=== PATIENT | male | born 1965 | race Caucasian/White ===

== ENCOUNTER → 2017-06-09 | Outpatient (CLI) | payer BC ==
[~2017-06-09] VITALS: Ht 175.3 cm; Wt 68.0 kg
[~2017-06-09] MED LIST: ALKA-SELTZER P1 EAC6 PO
== END | disposition home or self-care (01) ==
LOC: AMB 06:52
PROC: 0DBK8ZX Excision of Ascending Colon, Via Natural or Artificial Opening Endoscopic, Diagnostic (ICD-10-PCS; principal; 2017-06-09)
DX: Z12.11 Encounter for screening for malignant neoplasm of colon (principal); D12.2 Benign neoplasm of ascending colon; K64.8 Other hemorrhoids; G89.29 Other chronic pain; M54.6 Pain in thoracic spine; F17.200 Nicotine dependence, unspecified, uncomplicated; Z82.3 Family history of stroke
CPT/HCPCS: 88305